=== PATIENT | male | born 1965 | race Caucasian/White ===

== ENCOUNTER 2020-09-08 13:00 | Inpatient (IN) | payer MEDICAID, OTHER ==
[~2020-09-08] VITALS: Ht 177.8 cm; Wt 81.1 kg
[~2020-09-08 13:00] MED LIST: LINE600T12 PO; OXYC1TAB7 PO
[2020-09-08] MEDS ORDERED: SODIUM CHLORIDE FLUSH 10ML SYR IVF ONE (13:30)
[2020-09-08] MEDS ORDERED: DEXAMETHASONE 4 MG/ML, 1ML IVPush ONE (13:30)
[2020-09-08] MEDS ORDERED: KETOROLAC 30 MG/1 ML IVPush ONE (13:30)
[2020-09-08 14:24] LABS: BASOPHILS % (AUTO) 1 % (0-1); EOSINOPHILS % (AUTO) 0 % (1-7); LYMPHOCYTES % (AUTO) 15 % (22-44); MEAN CORPUSCULAR HEMOGLOBIN 30.6 pg (27.5-34.5); MEAN CORPUSCULAR HGB CONC 34.7 g/dL (33.2-36.2); MEAN PLATELET VOLUME 7.6 fL (7.4-10.4); MONOCYTES % (AUTO) 7 % (2-9); NEUTROPHILS % (AUTO) 78 % (42-75); PLATELET COUNT 230 x10^3/uL (130-400); RED BLOOD COUNT 5.17 x10^6/uL (4.38-5.82); RED CELL DISTRIBUTION WIDTH 13.7 % (9.4-14.8)
[2020-09-08 14:28] LABS: ALBUMIN 2.7 g/dL (3.4-5.0); ANION GAP 4 mmol/L (5-15); CALCIUM 8.6 mg/dL (8.5-10.1); CHLORIDE 100 mmol/L (98-107); CREATININE 1.15 mg/dL (0.7-1.3)
[2020-09-08] MEDS ORDERED: KETOROLAC 30 MG/1 ML ONE (15:05)
[2020-09-08] MEDS ORDERED: DEXAMETHASONE 4 MG/ML, 1ML ONE (15:05)
--- NOTE | 2020-09-08 16:00 | NUR ---
ASKED ERP IF WantS TO INITIATE SEPSIS PROTOCOL PT TEMP INCREASED. ERP ASKED FOR PT TO BE ROAD TESTED ON O2 SAT MONITOR ON RA . PT 88% WHILE SITTING UP ON GURNEY. WHILE UP WALKING, PT 92%. ERP MADE AWARE. ERP STATED THEY WILL GO TALK TO PT.
[2020-09-08] MEDS ORDERED: ACETAMINOPHEN 500 MG TABLET PO ONE (16:30)
[2020-09-08] MEDS ORDERED: ACETAMINOPHEN 500 MG TABLET ONE (16:39)
--- NOTE | 2020-09-08 16:58 | NUR ---
ERP JUST IN SPEAKING WIT PT. PT STATED TO THIS RN HE WOULD AGREE TO STAY. PT SWEATING AT THIS TIME. IV RESUCURED. PT PLACED BACK ON VITALS AND LAY OUT CARPENTER. WILL CONTINUE TO MONITOR.
[2020-09-08] MEDS ORDERED: SODIUM CHLORIDE FLUSH 10ML SYR IVF PRN (18:30)
--- NOTE | 2020-09-08 18:36 | NUR ---
report to dilia. emma
[2020-09-08] MEDS ORDERED: BISACODYL 10 MG SUPP PR PRN (19:00)
[2020-09-08] MEDS ORDERED: ONDANSETRON ODT 4 MG PO PRN (19:00)
[2020-09-08] MEDS ORDERED: POLYETHYLENE GLYCOL 17 GM PACKET PO PRN (19:00)
[2020-09-08] MEDS ORDERED: ACETAMINOPHEN 325 MG TABLET PO PRN (19:00)
[2020-09-08 20:15] VITALS: BP 100/70
[2020-09-08] MEDS: SODIUM CHLORIDE 0.9% 1,000 ML IV SCH (20:30)
[2020-09-08] MEDS: HEPARIN 5,000 UNITS/ML, 1ML SQ SCH (20:31)
[2020-09-08] MEDS: CEFTRIAXONE 1,000 MG in DEXTROSE 5% 50 ML IVPB SCH (20:47)
[2020-09-08] MEDS: DOXYCYCLINE 100 MG in DEXTROSE 5% 250 ML IV SCH (21:34)
[2020-09-09 01:53] VITALS: BP 96/64
[2020-09-09] MEDS: HEPARIN 5,000 UNITS/ML, 1ML SQ SCH ×3 (04:27→21:00)
[2020-09-09] MEDS: SODIUM CHLORIDE 0.9% 1,000 ML IV SCH ×2 (04:27→18:14)
[2020-09-09 06:19] LABS: BASOPHILS % (AUTO) 0 % (0-1); EOSINOPHILS % (AUTO) 0 % (1-7); LYMPHOCYTES % (AUTO) 20 % (22-44); MEAN CORPUSCULAR HGB CONC 34.7 g/dL (33.2-36.2); MONOCYTES % (AUTO) 8 % (2-9); NEUTROPHILS % (AUTO) 72 % (42-75); PLATELET COUNT 233 x10^3/uL (130-400); RED BLOOD COUNT 5.34 x10^6/uL (4.38-5.82); RED CELL DISTRIBUTION WIDTH 13.9 % (9.4-14.8)
[2020-09-09 06:28] LABS: ANION GAP 6 mmol/L (5-15); CALCIUM 8.8 mg/dL (8.5-10.1); CHLORIDE 102 mmol/L (98-107); CREATININE 1.51 mg/dL (0.7-1.3)
[2020-09-09 07:16] VITALS: BP 103/72
[2020-09-09] MEDS: ASCORBIC ACID 500 MG TABLET PO SCH ×2 (08:02→16:40)
[2020-09-09] MEDS: DEXAMETHASONE 4 MG/ML, 1ML IVPush SCH (08:04)
[2020-09-09] MEDS: ZINC SULFATE 220 MG CAPSULE PO SCH (08:06)
[2020-09-09] MEDS: SENNA/DOCUSATE TABLET PO SCH (08:06)
[2020-09-09] MEDS: CHOLECALCIFEROL 5,000u TAB PO SCH (08:06)
[2020-09-09] MEDS: DOXYCYCLINE 100 MG in DEXTROSE 5% 250 ML IV SCH ×2 (09:19→22:01)
[2020-09-09 14:00] VITALS: BP 108/71
[2020-09-09] MEDS ORDERED: LORazepam 0.5MG TABLET PO ONE (16:30)
[2020-09-09] MEDS ORDERED: MELATONIN 5 MG TABLET PO PRN (16:30)
[2020-09-09 19:12] VITALS: BP 96/59
[2020-09-09] MEDS: CEFTRIAXONE 1,000 MG in DEXTROSE 5% 50 ML IVPB SCH (21:07)
[2020-09-09] MEDS: GUAIFENESIN/DM 200-20MG, 10ML UDC PO PRN (21:07)
[2020-09-10 01:05] VITALS: BP 100/63
[2020-09-10] MEDS: GUAIFENESIN/DM 200-20MG, 10ML UDC PO PRN (05:29)
[2020-09-10] MEDS: HEPARIN 5,000 UNITS/ML, 1ML SQ SCH (05:30)
[2020-09-10] MEDS: SODIUM CHLORIDE 0.9% 1,000 ML IV SCH (05:30)
[2020-09-10 06:03] LABS: BASOPHILS % (AUTO) 0 % (0-1); EOSINOPHILS % (AUTO) 0 % (1-7); LYMPHOCYTES % (AUTO) 6 % (22-44); MEAN CORPUSCULAR HGB CONC 33.7 g/dL (33.2-36.2); MEAN PLATELET VOLUME 7.8 fL (7.4-10.4); MONOCYTES % (AUTO) 4 % (2-9); NEUTROPHILS % (AUTO) 89 % (42-75); PLATELET COUNT 326 x10^3/uL (130-400); RED BLOOD COUNT 4.92 x10^6/uL (4.38-5.82); RED CELL DISTRIBUTION WIDTH 13.8 % (9.4-14.8)
[2020-09-10 06:20] LABS: ALBUMIN 2.2 g/dL (3.4-5.0); ANION GAP 7 mmol/L (5-15); CALCIUM 8.8 mg/dL (8.5-10.1); CHLORIDE 110 mmol/L (98-107); CREATININE 0.76 mg/dL (0.7-1.3)
[2020-09-10 08:52] VITALS: BP 97/63
[2020-09-10] MEDS: ASCORBIC ACID 500 MG TABLET PO SCH (09:00)
[2020-09-10] MEDS: SENNA/DOCUSATE TABLET PO SCH (09:00)
[2020-09-10] MEDS: DOXYCYCLINE 100 MG in DEXTROSE 5% 250 ML IV SCH (09:00)
[2020-09-10] MEDS: CHOLECALCIFEROL 5,000u TAB PO SCH (09:00)
[2020-09-10] MEDS: DEXAMETHASONE 4 MG/ML, 1ML IVPush SCH (09:00)
[2020-09-10] MEDS: ZINC SULFATE 220 MG CAPSULE PO SCH (09:00)
== END 2020-09-10 10:00 | disposition left against medical advice (07) | DRG 871 ==
LOC: ED 18:05 → EDIP 18:10 → 3N 20:05
PROVIDERS: ADMIT Student in an Organized Health Care Education/Training Program; ATTEND Internal Medicine
DX: A41.89 Other specified sepsis (principal); J96.91 Respiratory failure, unspecified with hypoxia; J12.82 Pneumonia due to coronavirus disease 2019; U07.1 COVID-19; E87.1 Hypo-osmolality and hyponatremia; E86.0 Dehydration; K21.9 Gastro-esophageal reflux disease without esophagitis
CPT/HCPCS: 36415; 71045; 80048; 80069; 82040; 83605; 83880; 85025; 87040; 96374; 96375; G0378; J0696; J1100; J1644; J1885; J7060; J7030

== ENCOUNTER 2020-09-10 10:25 | Inpatient (IN) | payer OTHER ==
[~2020-09-10] VITALS: Ht 177.8 cm; Wt 83.7 kg
--- NOTE | 2020-09-10 10:35 | NUR ---
SHAE NURSE: EDUCATED PATIENT ON COVID-19 EXPOSURE TO THE PUBLIC DUE TO AMA AND NO MASK. EXPLAINED AT LENGTH, POPULATION AT RISK AND RISK FOR LEAVING AMA CAN INCLUDE . PT VERBALIZED UNDERSTANDING
--- NOTE | 2020-09-10 11:13 | NUR ---
Pt states he has no one he can rely on as his daughter and only family 3 months ago. Pt was admitted yesterday and left this AMA to go home and get his cellphone; stating "I need to call my work and I don't have the number memorized." Pt reports he planned on returning to the hospital but didn't have anyone to get his phone for him. Pt denies SOB, "they say it stays in the 80s" referring to his O2 saturation. Pt on 3L NC, 96%. IV started and labs drawn.
[2020-09-10] MEDS ORDERED: SODIUM CHLORIDE FLUSH 10ML SYR IVF PRN (11:30)
[2020-09-10 12:30] VITALS: BP 132/67
[2020-09-10] MEDS ORDERED: ACETAMINOPHEN 325 MG TABLET PO PRN (12:30)
[2020-09-10] MEDS ORDERED: IBUPROFEN 600 MG TABLET PO PRN (12:30)
[2020-09-10] MEDS: ZINC SULFATE 220 MG CAPSULE PO SCH (13:00)
[2020-09-10] MEDS: ENOXAPARIN 40 MG/0.4 ML SQ SCH (14:25)
[2020-09-10 14:40] LABS: D-DIMER 0.72 ug/mlFEU (0.00-0.52)
[2020-09-10] MEDS ORDERED: REMDESIVIR 200 MG in SODIUM CHLORIDE 0.9% 250 ML IVPB ONE (17:00)
[2020-09-10] MEDS: ASCORBIC ACID 500 MG TABLET PO SCH (17:03)
[2020-09-10 18:15] LABS: ALANINE AMINOTRANSFERASE 73 U/L (12-78); ALBUMIN 2.5 g/dL (3.4-5.0); ANION GAP 9 mmol/L (5-15); CALCIUM 9.2 mg/dL (8.5-10.1); CHLORIDE 110 mmol/L (98-107)
[2020-09-10 18:18] LABS: ALKALINE PHOSPHATASE 84 U/L (45-117); BILIRUBIN,TOTAL 0.4 mg/dL (0.2-1.0); CREATININE 0.94 mg/dL (0.7-1.3); TOTAL PROTEIN 7.2 g/dL (6.4-8.2)
[2020-09-10 20:15] VITALS: BP 101/59
[2020-09-10 21:56] LABS: AMPHETAMINE SCREEN, URINE Positive (Negative); BARBITURATE SCREEN, URINE Negative (Negative); BENZODIAZEPINE SCREEN, URINE Negative (Negative); CANNABINOID SCREEN, URINE Positive (Negative); COCAINE SCREEN, URINE Negative (Negative); METHADONE SCREEN, URINE Negative (Negative); OPIATE SCREEN, URINE Negative (Negative)
[2020-09-10] MEDS: THIAMINE 100MG TABLET PO SCH (22:02)
[2020-09-10] MEDS: CHOLECALCIFEROL 400 UNITS TABLET PO SCH (22:03)
[2020-09-10] MEDS: CEFTRIAXONE 1,000 MG in DEXTROSE 5% 50 ML IVPB SCH (22:04)
[2020-09-10] MEDS: MELATONIN 5 MG TABLET PO PRN (22:13)
[2020-09-10] MEDS: DOXYCYCLINE 100 MG in DEXTROSE 5% 250 ML IV SCH (22:50)
[2020-09-11 00:20] VITALS: BP 110/62
[2020-09-11 06:04] LABS: BASOPHILS % (AUTO) 0 % (0-1); EOSINOPHILS % (AUTO) 0 % (1-7); LYMPHOCYTES % (AUTO) 9 % (22-44); MEAN CORPUSCULAR HEMOGLOBIN 30.1 pg (27.5-34.5); MEAN CORPUSCULAR HGB CONC 33.8 g/dL (33.2-36.2); MONOCYTES % (AUTO) 5 % (2-9); NEUTROPHILS % (AUTO) 86 % (42-75); PLATELET COUNT 392 x10^3/uL (130-400); RED BLOOD COUNT 4.68 x10^6/uL (4.38-5.82); RED CELL DISTRIBUTION WIDTH 13.9 % (9.4-14.8)
[2020-09-11 06:12] LABS: CHLORIDE 112 mmol/L (98-107)
[2020-09-11 06:23] LABS: ALANINE AMINOTRANSFERASE 61 U/L (12-78); ALBUMIN 2.2 g/dL (3.4-5.0); ALKALINE PHOSPHATASE 75 U/L (45-117); ANION GAP 5 mmol/L (5-15); BILIRUBIN,TOTAL 0.4 mg/dL (0.2-1.0); CALCIUM 8.7 mg/dL (8.5-10.1); CREATININE 0.87 mg/dL (0.7-1.3); TOTAL PROTEIN 6.4 g/dL (6.4-8.2)
[2020-09-11] MEDS: DEXAMETHASONE 4 MG/ML, 1ML IVPush SCH (09:09)
[2020-09-11] MEDS: CHOLECALCIFEROL 400 UNITS TABLET PO SCH ×2 (09:09→21:13)
[2020-09-11] MEDS: ZINC SULFATE 220 MG CAPSULE PO SCH (09:10)
[2020-09-11] MEDS: THIAMINE 100MG TABLET PO SCH ×2 (09:10→21:12)
[2020-09-11] MEDS: ASCORBIC ACID 500 MG TABLET PO SCH ×2 (09:10→17:59)
[2020-09-11 09:54] VITALS: BP 92/51
[2020-09-11] MEDS: DOXYCYCLINE 100 MG in DEXTROSE 5% 250 ML IV SCH ×2 (11:02→23:27)
[2020-09-11] MEDS: ONDANSETRON 2MG/ML, 2ML IVPush PRN (11:20)
[2020-09-11 12:34] VITALS: BP 93/52
[2020-09-11] MEDS: ENOXAPARIN 40 MG/0.4 ML SQ SCH (13:54)
[2020-09-11] MEDS: REMDESIVIR 100 MG in SODIUM CHLORIDE 0.9% 250 ML IVPB SCH (18:31)
[2020-09-11 21:06] VITALS: BP 112/74
[2020-09-11] MEDS: MELATONIN 5 MG TABLET PO PRN (21:13)
[2020-09-11] MEDS: CEFTRIAXONE 1,000 MG in DEXTROSE 5% 50 ML IVPB SCH (21:13)
[2020-09-12 00:05] VITALS: BP 98/65
[2020-09-12 08:46] VITALS: BP 102/62
[2020-09-12] MEDS: THIAMINE 100MG TABLET PO SCH ×2 (09:00→20:38)
[2020-09-12] MEDS: CHOLECALCIFEROL 400 UNITS TABLET PO SCH ×2 (09:09→20:37)
[2020-09-12] MEDS: DEXAMETHASONE 4 MG/ML, 1ML IVPush SCH (09:09)
[2020-09-12] MEDS: ZINC SULFATE 220 MG CAPSULE PO SCH (09:10)
[2020-09-12] MEDS: ASCORBIC ACID 500 MG TABLET PO SCH ×2 (09:10→17:39)
[2020-09-12 10:38] LABS: ALBUMIN 2.2 g/dL (3.4-5.0); ANION GAP 4 mmol/L (5-15); CALCIUM 8.9 mg/dL (8.5-10.1); CHLORIDE 111 mmol/L (98-107)
[2020-09-12 10:43] LABS: ALANINE AMINOTRANSFERASE 60 U/L (12-78); ALKALINE PHOSPHATASE 79 U/L (45-117); BILIRUBIN,TOTAL 0.5 mg/dL (0.2-1.0); CREATININE 0.79 mg/dL (0.7-1.3); TOTAL PROTEIN 6.5 g/dL (6.4-8.2)
[2020-09-12] MEDS: DOXYCYCLINE 100 MG in DEXTROSE 5% 250 ML IV SCH (10:53)
[2020-09-12 10:59] VITALS: BP 101/65
[2020-09-12] MEDS ORDERED: OMNIPAQUE 350 MG/ML, 100ML BOTTLE ONE (14:28)
[2020-09-12] MEDS: AZITHROMYCIN 500 MG in SODIUM CHLORIDE 0.9% 250 ML IV SCH (15:00)
[2020-09-12] MEDS: ENOXAPARIN 40 MG/0.4 ML SQ SCH ×2 (15:00→20:39)
[2020-09-12 15:43] VITALS: BP 109/69
[2020-09-12] MEDS: ONDANSETRON 2MG/ML, 2ML IVPush PRN (16:09)
[2020-09-12] MEDS: REMDESIVIR 100 MG in SODIUM CHLORIDE 0.9% 250 ML IVPB SCH (17:39)
[2020-09-12 20:21] VITALS: BP 120/75
[2020-09-12] MEDS: CEFTRIAXONE 1,000 MG in DEXTROSE 5% 50 ML IVPB SCH (20:37)
[2020-09-12] MEDS: MELATONIN 5 MG TABLET PO PRN (20:38)
[2020-09-13 02:02] VITALS: BP 104/65
[2020-09-13 05:42] LABS: MEAN CORPUSCULAR HGB CONC 33.6 g/dL (33.2-36.2); MEAN PLATELET VOLUME 7.3 fL (7.4-10.4); PLATELET COUNT 433 x10^3/uL (130-400); RED BLOOD COUNT 4.85 x10^6/uL (4.38-5.82); RED CELL DISTRIBUTION WIDTH 13.7 % (9.4-14.8)
[2020-09-13 05:54] LABS: ANION GAP 4 mmol/L (5-15); CALCIUM 8.4 mg/dL (8.5-10.1); CHLORIDE 111 mmol/L (98-107); CREATININE 0.82 mg/dL (0.7-1.3)
[2020-09-13 05:59] LABS: D-DIMER 0.76 ug/mlFEU (0.00-0.52)
[2020-09-13 06:46] LABS: BANDS%(MANUAL) 4 % (0-7); LYMPHS% (MANUAL) 6 % (22-44); METAMYELOCYTES% (MANUAL) 2 % (0-1); MONOS% (MANUAL) 4 % (2-9)
[2020-09-13 06:47] LABS: <RBC MORPHOLOGY> NORMAL; MYELOCYTES# (MANUAL) 0.15 x10^3/uL (0-0); MYELOCYTES% (MANUAL) 1 % (0-0); SEGS% (MANUAL) 83 % (42-75)
[2020-09-13 06:48] LABS: <PLATELET ESTIMATE> INCREASED; <PLT MORPHOLOGY> NORMAL PLT MORPH
[2020-09-13 08:29] LABS: ALANINE AMINOTRANSFERASE 59 U/L (12-78); ALBUMIN 1.9 g/dL (3.4-5.0)
[2020-09-13 08:30] LABS: ALKALINE PHOSPHATASE 77 U/L (45-117); BILIRUBIN,TOTAL 0.4 mg/dL (0.2-1.0); TOTAL PROTEIN 6.2 g/dL (6.4-8.2)
[2020-09-13 08:49] VITALS: BP 105/64
[2020-09-13] MEDS: ENOXAPARIN 40 MG/0.4 ML SQ SCH ×2 (08:54→21:28)
[2020-09-13] MEDS: ASCORBIC ACID 500 MG TABLET PO SCH ×2 (08:54→17:00)
[2020-09-13] MEDS: CHOLECALCIFEROL 400 UNITS TABLET PO SCH ×2 (08:55→21:28)
[2020-09-13] MEDS: DEXAMETHASONE 4 MG/ML, 1ML IVPush SCH (08:55)
[2020-09-13] MEDS: ZINC SULFATE 220 MG CAPSULE PO SCH (08:56)
[2020-09-13] MEDS: THIAMINE 100MG TABLET PO SCH ×2 (08:56→21:28)
[2020-09-13] MEDS: AZITHROMYCIN 500 MG in SODIUM CHLORIDE 0.9% 250 ML IV SCH (13:42)
[2020-09-13] MEDS ORDERED: LORazepam 1MG TABLET PO ONE (14:30)
[2020-09-13 14:36] VITALS: BP 100/62
[2020-09-13 15:32] VITALS: BP 105/64
[2020-09-13] MEDS: REMDESIVIR 100 MG in SODIUM CHLORIDE 0.9% 250 ML IVPB SCH (17:00)
[2020-09-13 19:46] VITALS: BP 103/61
[2020-09-13] MEDS: MELATONIN 5 MG TABLET PO PRN (21:28)
[2020-09-13] MEDS: CEFTRIAXONE 1,000 MG in DEXTROSE 5% 50 ML IVPB SCH (21:28)
[2020-09-14 00:07] VITALS: BP 96/62
[2020-09-14 04:54] LABS: MEAN CORPUSCULAR HGB CONC 33.4 g/dL (33.2-36.2); MEAN PLATELET VOLUME 7.6 fL (7.4-10.4); PLATELET COUNT 471 x10^3/uL (130-400); RED BLOOD COUNT 4.71 x10^6/uL (4.38-5.82); RED CELL DISTRIBUTION WIDTH 13.7 % (9.4-14.8)
[2020-09-14 05:02] LABS: CHLORIDE 110 mmol/L (98-107)
[2020-09-14 05:11] LABS: ALANINE AMINOTRANSFERASE 57 U/L (12-78); ALBUMIN 1.9 g/dL (3.4-5.0); ALKALINE PHOSPHATASE 69 U/L (45-117); ANION GAP 9 mmol/L (5-15); BILIRUBIN,TOTAL 0.4 mg/dL (0.2-1.0); CALCIUM 8.3 mg/dL (8.5-10.1); CREATININE 0.72 mg/dL (0.7-1.3)
[2020-09-14 05:24] LABS: <PLATELET ESTIMATE> INCREASED; <RBC MORPHOLOGY> NORMAL; EOS#(MANUAL) 0.15 x10^3/uL (0.0-0.4); EOS% (MANUAL) 1 % (1-7); LARGE PLATELETS 1+; LYMPH#(MANUAL) 1.37 x10^3/uL (1-3.4); LYMPHS% (MANUAL) 9 % (22-44); METAMYELOCYTES# (MANUAL) 0.15 x10^3/uL (0-0); METAMYELOCYTES% (MANUAL) 1 % (0-1); MONOS#(MANUAL) 1.06 x10^3/uL (0.3-2.7); MONOS% (MANUAL) 7 % (2-9); MYELOCYTES# (MANUAL) 0.46 x10^3/uL (0-0); MYELOCYTES% (MANUAL) 3 % (0-0); SEG#(MANUAL) 12.01 x10^3/uL (1.8-6.8); SEGS% (MANUAL) 79 % (42-75)
[2020-09-14 06:53] VITALS: BP 108/68
[2020-09-14] MEDS: CHOLECALCIFEROL 400 UNITS TABLET PO SCH (08:28)
[2020-09-14] MEDS: THIAMINE 100MG TABLET PO SCH (08:28)
[2020-09-14] MEDS: ZINC SULFATE 220 MG CAPSULE PO SCH (08:29)
[2020-09-14] MEDS: DEXAMETHASONE 4 MG/ML, 1ML IVPush SCH (08:29)
[2020-09-14] MEDS: ENOXAPARIN 40 MG/0.4 ML SQ SCH (08:29)
[2020-09-14] MEDS: ASCORBIC ACID 500 MG TABLET PO SCH (08:29)
[2020-09-14] MEDS ORDERED: ZINC220C8 PO (09:12)
[2020-09-14] MEDS ORDERED: DEXA6TAB6 PO (09:12)
[2020-09-14] MEDS ORDERED: ASCO500T9 PO (09:12)
[2020-09-14] MEDS: REMDESIVIR 100 MG in SODIUM CHLORIDE 0.9% 250 ML IVPB SCH (11:57)
[2020-09-14 12:37] VITALS: BP 126/77
[2020-09-14] MEDS: AZITHROMYCIN 500 MG in SODIUM CHLORIDE 0.9% 250 ML IV SCH (14:17)
== END 2020-09-14 15:26 | disposition home or self-care (01) | DRG 177 ==
LOC: ED 10:28 → EDIP 11:19 → 3N 12:56
PROVIDERS: ADMIT Internal Medicine; ATTEND Internal Medicine
PROC: XW033E5 Introduction of Remdesivir Anti-infective into Peripheral Vein, Percutaneous Approach, New Technology Group 5 (ICD-10-PCS; principal; 2020-09-10)
DX: U07.1 COVID-19 (principal); J12.82 Pneumonia due to coronavirus disease 2019; J96.01 Acute respiratory failure with hypoxia; K21.9 Gastro-esophageal reflux disease without esophagitis; E88.09 Other disorders of plasma-protein metabolism, not elsewhere classified; R59.0 Localized enlarged lymph nodes; T38.0X5A Adverse effect of glucocorticoids and synthetic analogues, initial encounter; Z99.81 Dependence on supplemental oxygen; Z86.14 Personal history of Methicillin resistant Staphylococcus aureus infection; Z91.19 Patient's noncompliance with other medical treatment and regimen; Y92.89 Other specified places as the place of occurrence of the external cause; Z79.899 Other long term (current) drug therapy
CPT/HCPCS: 36415; 71045; 71275; 80053; 80307; 83615; 84145; 85025; 85379; 85384; 93970; 96374; G0378; J0456; J0696; J1100; J1650; J2405; J7060; Q9967; J7050